=== PATIENT | male | born 1945 | race Hispanic/Latino ===

== ENCOUNTER → 2018-06-30 | Outpatient (CLI) | payer MEDICARE ==
--- NOTE | 2018-07-01 09:47 | Diagnostic Imaging Report ---
PROCEDURE: Frontal and lateral views of the chest. COMPARISON: Chest radiograph 05/05/2017. INDICATIONS: MALIGNANT NEOPLASM OF KIDNEY FINDINGS: Lines/tubes: None. Lungs: The lungs are well inflated and clear. There is no evidence of pneumonia or pulmonary edema. Pleura: There is no pleural effusion or pneumothorax. Heart and mediastinum: The cardiomediastinal silhouette is unchanged. Bones: No acute bony abnormality. IMPRESSION: No acute cardiopulmonary disease. Dictated by: SUREKHA CASTAÑEDA M.D. on 07/01/2018 at 9:53 Electronically approved by: SUREKHA CASTAÑEDA M.D. on 07/01/2018 at 9:53
== END ==
LOC: RAD 11:26
PROVIDERS: ATTEND Urology
DX: C64.9 Malignant neoplasm of unspecified kidney, except renal pelvis (principal)
CPT/HCPCS: 71046

== ENCOUNTER → 2018-11-23 | Outpatient (CLI) | payer OTHER ==
--- NOTE | 2018-11-23 15:39 | Diagnostic Imaging Report ---
EXAM: XR CHEST 2 VIEWS DATE: 11/23/2018 2:40 PM INDICATION: Renal malignancy COMPARISON: 05/05/2017, no report available FINDINGS: Lines and Tubes: None Heart and Mediastinum: Heart is upper limits of normal. Smooth prominence of the right aspect of the hilum likely ascending aorta, which may be ectatic. Lungs and Pleura: Mild biapical scarring. Nipple shadows stable. Bones and Soft Tissues: No acute findings. IMPRESSION: 1. Stable chronic changes. Given history, CT could be obtained if indicated. Signed by: Dr. Herrera Cruz MD on 11/23/2018 3:36 PM
--- NOTE | 2018-11-23 16:01 | Diagnostic Imaging Report ---
EXAM: Renal Ultrasound INDICATION: History of renal malignancy. COMPARISON: CT Abdomen/Pelvis 05/05/2017. TECHNIQUE: Transverse and longitudinal images of the kidneys and bladder were obtained. FINDINGS: Right Kidney: Status post right total nephrectomy. Left Kidney: Length: Measures 10.1 x 5.0 x 4.2 cm Appearance: Normal echogenicity. Collecting system: No hydronephrosis Stones: None Cyst/Mass: No evidence of solid mass. There is an exophytic cyst arising from the left mid pole kidney, measuring up to 4.2 x 3.5 x 3.7 cm. Bladder: Unremarkable in appearance. Left ureteral jet is seen. Right ureteral jet is not visualized. Prostate: Enlarged, measuring up to 7.8 cm. IMPRESSION: Status post right total nephrectomy. No evidence of solid mass in the left kidney. Simple left mid pole renal cyst. Prostatomegaly. Signed by: Dr. Morenita South MD on 11/23/2018 3:58 PM
== END ==
LOC: US 14:34
PROVIDERS: ATTEND Urology
DX: C64.9 Malignant neoplasm of unspecified kidney, except renal pelvis (principal)
CPT/HCPCS: 71046; 76770

== ENCOUNTER → 2020-08-23 | Outpatient (CLI) | payer MEDICARE, OTHER ==
[~2020-08-23] MED LIST: AMLODIPINE BESYL5 MG PO; ASPIRIN81 MG PO; BACLOFEN10 MG PO; CARVEDILOL12.5 MG PO; CLONIDINE HCL0.1 MG PO; FINASTERIDE5 MG PO; FLOMAX0.4 MG PO; HUMALOG100 UNIT/3 SC; ISOSORBIDE MONO30 MG PO; LIPITOR10 MG PO; PLAVIX75 MG PO
== END ==
LOC: US 12:49
PROVIDERS: ATTEND Urology
DX: N43.3 Hydrocele, unspecified (principal)
CPT/HCPCS: 76870; 93976

== ENCOUNTER → 2020-10-11 | Day surgery (SDC) | payer MEDICARE, OTHER ==
[~2020-10-11] MED LIST changes: +LIDOCAINE HCL 2% LOCAL INJ 5 ML SDV VIAL INJ ONE; +PROPOFOL IV EMULSION 10 MG/ML 20 ML VIAL ONE; +SODIUM CHLORIDE 0.9% 500ML 500 ML ONE
[2020-10-11 06:25] LABS: BASOPHILS # (AUTO) 0.1 (0.0-0.1); BASOPHILS % 0.8 % (0.0-1.0); EOSINOPHILS # (AUTO) 0.2 (0.0-0.4); EOSINOPHILS % 3.4 % (0.0-6.0); HEMATOCRIT 37.5 % (38.2-49.6); HEMOGLOBIN 11.7 g/dL (14.0-18.0); LYMPHOCYTES # (AUTO) 1.2 (1.0-3.2); LYMPHOCYTES % 17.8 % (18.0-39.1); MEAN CORPUSCULAR HEMOGLOBIN 28.6 pg (28-32); MEAN CORPUSCULAR HGB CONC 31.2 g/dL (31-35); MEAN CORPUSCULAR VOLUME 91.7 fL (81-99); MONOCYTES # (AUTO) 0.8 (0.2-0.8); MONOCYTES % 11.5 % (4.4-11.3); NEUTROPHILS # (AUTO) 4.3 (2.1-6.9); NEUTROPHILS % 66.2 % (38.7-80.0); PLATELET COUNT 174 x10e3/uL (140-360); RED BLOOD COUNT 4.09 x10e6/uL (4.3-5.7); RED CELL DISTRIBUTION WIDTH 17.2 % (11.7-14.4)
[2020-10-11 07:25] VITALS: BP 105/48
== END | disposition home or self-care (01) ==
LOC: OR 05:35
PROVIDERS: ATTEND Internal Medicine Gastroenterology
DX: R13.10 Dysphagia, unspecified (principal); K29.50 Unspecified chronic gastritis without bleeding; K31.89 Other diseases of stomach and duodenum; K44.9 Diaphragmatic hernia without obstruction or gangrene; Z71.3 Dietary counseling and surveillance; E66.3 Overweight; M06.9 Rheumatoid arthritis, unspecified; I25.10 Atherosclerotic heart disease of native coronary artery without angina pectoris; E78.5 Hyperlipidemia, unspecified; I45.10 Unspecified right bundle-branch block; E11.22 Type 2 diabetes mellitus with diabetic chronic kidney disease; I12.0 Hypertensive chronic kidney disease with stage 5 chronic kidney disease or end stage renal disease; N18.6 End stage renal disease; Z01.810 Encounter for preprocedural cardiovascular examination; Z01.812 Encounter for preprocedural laboratory examination; Z20.828 Contact with and (suspected) exposure to other viral communicable diseases; Z79.82 Long term (current) use of aspirin; Z79.4 Long term (current) use of insulin; Z79.02 Long term (current) use of antithrombotics/antiplatelets; Z99.2 Dependence on renal dialysis; Z68.27 Body mass index [BMI] 27.0-27.9, adult; Z90.5 Acquired absence of kidney; Z95.5 Presence of coronary angioplasty implant and graft; Z86.718 Personal history of other venous thrombosis and embolism; Z87.891 Personal history of nicotine dependence
CPT/HCPCS: 36415; 43239; 82948; 84132; 85025; 93005; J2001; J2704; J7040; U0002